=== PATIENT | male | born 1955 | race African-American/Black ===

== ENCOUNTER 2019-01-12 10:05 | Inpatient (IN) | payer MEDICARE, MEDICAID ==
[2019-01-12 10:41] LABS: Bilirubin Negative (Negative); Clarity Turbid (Clear); Glucose, Urine (Dipstick) Negative (Negative); Leukocyte Large (Negative); Nitrite Positive (Negative); Protein, Urine (Dipstick) > or equal to 300 mg/dL (Neg-Trace); Specific Gravity, Urine 1.015 (1.005-1.030); pH, Urine 5.5 (5.0-9.0)
[2019-01-12 10:42] LABS: Bacteria/HPF 2+ HPF (None Seen); Blood, Urine Large (Negative); Squamous Epithelial 0-3 HPF (0-3)
[2019-01-12] MEDS ORDERED: Acetaminophen 500 MG TAB ONE (10:44)
[2019-01-12 10:56] LABS: ALT (SGPT) 56 U/L (8-55); AST (SGOT) 49 U/L (5-34); Alkaline Phosphatase 48 U/L (40-150); Anion Gap 17 mmol/L (10-20); BUN (Urea Nitrogen) 18 mg/dL (8.4-25.7); Bilirubin, Total 2.6 mg/dL (0.2-1.2); Calc. Creatinine Clearance 0 mL/min (70-130); Calcium 9.1 mg/dL (7.8-10.44); Carbon Dioxide 19 mmol/L (23-31); Chloride 105 mmol/L (98-107); Estimated GFR-MDRD 53; Globulin 3.3 g/dL (2.4-3.5); Glucose 113 mg/dL (80-115); Lipase 19 U/L (8-78); Protein, Total 7.3 g/dL (5.8-8.1); Sodium 138 mmol/L (136-145)
[2019-01-12 10:58] LABS: Potassium 2.9 mmol/L (3.5-5.1)
[2019-01-12 11:01] LABS: #Basophils 0.1 thou/uL (0.0-0.2); #Lymphocytes 0.7 thou/uL (1.20-3.40); #Monocytes 1.1 thou/uL (0.11-0.59); #Neutrophils 13.1 thou/uL (1.40-6.50); %Basophils 0.5 % (0.0-1.0); %Lymphocytes 4.5 % (21.0-51.0); %Monocytes 7.1 % (0.0-10.0); %Neutrophils 87.8 % (42.0-75.0); Hemoglobin 14.1 g/dL (14.0-18.0); Mean Corpuscular HGB CONC 34.3 g/dL (32.0-36.0); Mean Corpuscular Volume 93.4 fL (78.0-98.0); Mean Platelet Volume 6.6 fL (7.4-10.4); Platelet Count 105 thou/uL (130-400); White Blood Cell (WBC) Count 14.9 thou/uL (4.8-10.8)
[2019-01-12 11:02] LABS: Platelet Morphology Comment Appears Decreased
[2019-01-12 11:03] LABS: MDiff Complete? YES; Manual Diff?? YES
[2019-01-12] MEDS ORDERED: Piperacillin/Tazobactam 4.5 GM VIAL ONE (11:12)
[2019-01-12] MEDS ORDERED: Sodium Chloride 0.9% 100 ML ONE (11:13)
[2019-01-12] MEDS ORDERED: Ondansetron PF 4 MG/2 ML Vial IVP PRN (11:25)
[2019-01-12] MEDS ORDERED: Acetaminophen 325 MG TAB PO PRN (11:25)
[2019-01-12] MEDS ORDERED: Ondansetron ODT 4 MG TAB SL PRN (11:25)
[2019-01-12] MEDS ORDERED: Nitrofurantoin Monohyd/M-Cryst 100 MG CAP ONE (11:36)
[2019-01-12 13:10] VITALS: BMI 25.7
[2019-01-12] MEDS ORDERED: D5 1/2 NS w/20 mEq KCL 1,000 ML IV SCH (13:30)
[2019-01-12] MEDS ORDERED: Piperacillin/Tazobactam 3.375 GM in Sodium Chloride 0.9% 100 ML IVPB SCH (14:00)
[2019-01-12 18:26] LABS: ALT (SGPT) 49 U/L (8-55); AST (SGOT) 42 U/L (5-34); Albumin 3.4 g/dL (3.4-4.8); Alkaline Phosphatase 44 U/L (40-150); Anion Gap 14 mmol/L (10-20); BUN (Urea Nitrogen) 19 mg/dL (8.4-25.7); Bilirubin, Total 2.5 mg/dL (0.2-1.2); Calc. Creatinine Clearance 67 mL/min (70-130); Calcium 8.3 mg/dL (7.8-10.44); Carbon Dioxide 19 mmol/L (23-31); Chloride 109 mmol/L (98-107); Estimated GFR-MDRD 60; Globulin 2.8 g/dL (2.4-3.5); Glucose 123 mg/dL (80-115); Potassium 3.2 mmol/L (3.5-5.1); Protein, Total 6.2 g/dL (5.8-8.1); Sodium 139 mmol/L (136-145)
[2019-01-12] MEDS: Piperacillin/Tazobactam 3.375 GM in Sodium Chloride 0.9% 100 ML IVPB SCH (18:42)
--- NOTE | 2019-01-12 19:12 | CT ---
CT abdomen noncontrast CT pelvis noncontrast: (Urolithiasis protocol) DATE: 01/12/2019 HISTORY: 63-year-old male with sepsis and pyelonephritis COMPARISON: none TECHNIQUE: IV injection of iodinated contrast media: None Oral contrast media: None FINDINGS: Other than for urolithiasis, the lack of IV and oral contrast limits the evaluation. There is fluid and fat stranding circumferentially throughout the right perirenal space, extending in to the right renal hilum. No significant hydronephrosis bilaterally. No renal, ureteral, or bladder calculus identified. Spleen is enlarged by a large rim calcified, septated 10 x 10 x 10.5 cm multiloc ulated cystic mass. No abdominal aortic aneurysm. No small bowel dilation. Decompressed urinary bladder. Multiple diverticula sigmoid colon. No small bowel dilation. No consolidation or pleural eff usion at lung bases. No pneumoperitoneum. IMPRESSION: 1. Extensive right perirenal edema/fluid without evidence of obstructive uropathy or urolithiasis. Pe rhaps this represents severe right pyelonephritis. The other possibility is a recently passed right ureteral calculus. The former is favored. 2. Splenomegaly due to large, multi septated, multi chambered cystic mass with rim calcifications.
[2019-01-12] MEDS ORDERED: Nitrofurantoin Monohyd/M-Cryst 100 MG CAP PO SCH (21:00)
[2019-01-12] MEDS: Atorvastatin Calcium 10 MG TAB PO SCH (21:26)
--- NOTE | 2019-01-13 00:08 | HP ---
CHIEF COMPLAINT: Abdominal pain and cloudy urine. HISTORY OF PRESENT ILLNESS: Mr. 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 Reports pretty quickly thereafter, he experienced some lower abdominal cramping and diarrhea, approximately 3-4 episodes. He also had a co-worker with a milder version of these symptoms after eating the same peas from the convenience store. He denied any abdominal pain or other symptoms until the following morning at which point, he noticed that his urine turned cloudy and the color of iced tea with associated frequency. He experienced further abdominal pain and "gas" after eating a [employer] burger and some fries yesterday afternoon. He then started with chills and malaise and presented to the emergency room for further evaluation today. In the emergency department, the patient was found to have significant urinalysis and met sepsis criteria with tachycardia, leukocytosis and fever. His lactic acid level was negative, but he was admitted for IV antibiotics, IV fluid resuscitation, and urine and blood cultures. He did not have any imaging performed, but notably had elevated liver function tests as well as a low platelet count. Regarding his elevated LFTs, he gives me a history of being told he previously had hepatitis C and was instructed to stop consuming alcohol while he was being considered for treatment. However, he reports that there was a mix up at his primary care office, as there were two patients with the same name, and he thinks it was the other nancy that had it. He also notes that his primary care doctor, approximately 3 months ago, recommended that he see a security director for issues that were related to possibly this prior hepatitis diagnosis. He denies a history of low platelets, although his platelet count was diminished today. He denies any significant alcohol history previously. PAST MEDICAL HISTORY: 1. Hypertension. 2. Prostate cancer, status post resection 6 years ago, followed regularly by Urology, initially with three-month lab checks and followup, which subsequently was increased to q.6 months and now subsequently, has been increased to yearly with his exam coming up at the end of this month. He did not require chemo or radiation. 3. Hyperlipidemia. PAST SURGICAL HISTORY: Prostate resection. FAMILY HISTORY: Patient denies history of heart disease or diabetes in the family. SOCIAL HISTORY: The patient lives in [place], but apparently comes to work in the [employer] for a month at a time here locally and then returns back home for a week or two. His nephew is here as well. He drinks socially approximately once per month and denies any illicit drug use and does not smoke. MEDICATIONS: The patient takes: 1. Losartan either 25 or 50 mg q.a.m. 2. Diltiazem 100 mg ER q.a.m. 3. Atorvastatin, unknown dosage q. p.m. 4. Oxybutynin, unknown dosing strength b.i.d. ALLERGIES: NO KNOWN DRUG ALLERGIES. REVIEW OF SYSTEMS: GENERAL: He complains of chills, fever unmeasured, malaise, sweats. HEENT: Denies eye pain or changes in his vision, rhinorrhea, ear pain, sore throat, hoarseness to the voice. CARDIOVASCULAR: The patient denies chest pain, palpitations, orthopnea, or PND. RESPIRATORY: Denies shortness of breath, cough, hemoptysis, wheezing. GASTROINTESTINAL: The patient reports lower abdominal pain, reduction in appetite, and diarrhea approximately 2-3 episodes the night before last. No melena or hematochezia. GENITOURINARY: Patient reports cloudy urine. No gross hematuria. Dark urine reported with frequency and hesitancy starting yesterday morning. MUSCULOSKELETAL: The patient complains of myalgias, low back pain. SKIN: Denies rash. NEUROLOGIC: The patient denies weakness, numbness, tingling, or changes in his speech. LYMPHATIC: The patient denies swelling. HEMATOLOGIC: Patient denies any easy bleeding or bruising. OBJECTIVE: VITAL SIGNS: Upon ED presentation, blood pressure 150/99, pulse 119 , O2 saturation 97% on room air, respirations 16, temperature 99.4, pain 2/10. On my exam, temperature 98.8, heart rate 103, respirations 18, 97% on room air, blood pressure 139/89. GENERAL: Well-developed, thin male, well nourished, diaphoretic. Alert and oriented to person, place, and time. Responds appropriately to questioning, ill appearing. HEENT: Normocephalic, atraumatic. Pupils equally round and reactive to light and accommodation, extraocular muscles intact. Nares are patent without discharge. Tongue protrudes in the midline. NECK: Supple without lymphadenopathy, thyromegaly, JVD, or bruit. HEART: Tachycardic with regular rhythm. Normal S1 and S2. No murmurs, clicks, rubs, or gallops. LUNGS: Clear to auscultation with good air entry bilaterally. No crackles or wheezes. ABDOMEN: Positive bowel sounds in all four quadrants. Soft, nondistended, tenderness to palpation bilateral lower quadrants without masses, guarding, or rebound tenderness. EXTREMITIES: No cyanosis, clubbing, or edema. NEUROLOGIC: Cranial nerves 2 through 12 are grossly intact without focal deficits. LABORATORY STUDIES: White count 14.9 with 89% neutrophils and 4% lymphocytes, hemoglobin 14.1, hematocrit 41, platelets 105 with a morphology comment that they appear decreased. Sodium 138, potassium 3.9, BUN 18, creatinine 1.62, glucose 113, lactic acid 1.0, calcium 9.1, T bilirubin 2.6, AST 49, ALT 56, alkaline phosphatase 48, albumin 4, and lipase 19. The urine is turbid with greater than or equal to 300 protein, large blood, positive nitrite, large LE, 11-20 rbc's, greater than 50 to [id number] wbc's and 2+ urine bacteria, 0-3 squamous epithelial cells. Micro urine and blood cultures x2 are pending. ASSESSMENT AND PLAN: 1. Sepsis secondary to pyelonephritis. The patient meets criteria for sepsis and has been treated in the emergency room with Zosyn and oral macrobid. ED held fluoroquinalone in light of the significant hypokalemia and risk of QT prolongation. Will discontinue macrobid due to poor bladder penetrance in the context of significant infection and the patient's renal insufficiency. We will continue the Zosyn at this time. Follow up urine and blood cultures. Due to the patient's gastrointestinal symptoms, we will go ahead and obtain a CT scan of the abdomen and pelvis without contrast. He would be considered high risk due to his previous history of prostate cancer. 2. History of prostate cancer. We will check a PSA. The patient's oxybutynin will be held in the context of infection while here. 3. Transaminitis with thrombocytopenia. The patient gives a possible history of hepatitis C. We will get an acute hepatitis profile and imaging as above. 4. Possible food poisoning. If the patient has diarrhea, we will obtain stool studies. 5. Hypertension. The patient will be continued on his diltiazem. Hold losartan as I suspect his renal insufficiency is at least partially acute. 6. Hypokalemia. The patient was given potassium in the ER and his current IV fluids contain potassium. He is going to have repeat labs this afternoon and in the morning. The etiology of this is unclear as the patient is not on any potassium-lowering medication at this time. 7. Hyperlipidemia. The patient will be continued on his atorvastatin. 8. Renal insufficiency. Unknown baseline. The patient was given IV fluids in the emergency room and will be continued on fluids overnight. We will repeat labs in the a.m. 9. Prophylaxis. Since the patient's platelets are low, I am going to give him pantoprazole instead of pepcid for stress ulcer prophylaxis. [facility] STATUS: Patient is a FULL CODE. Job ID: [id number]
[2019-01-13] MEDS: Piperacillin/Tazobactam 3.375 GM in Sodium Chloride 0.9% 100 ML IVPB SCH ×4 (00:32→17:17)
[2019-01-13 05:59] LABS: Anion Gap 11 mmol/L (10-20); BUN (Urea Nitrogen) 22 mg/dL (8.4-25.7); Calc. Creatinine Clearance 72 mL/min (70-130); Calcium 8.2 mg/dL (7.8-10.44); Carbon Dioxide 21 mmol/L (23-31); Chloride 110 mmol/L (98-107); Estimated GFR-MDRD 65; Glucose 138 mg/dL (80-115); Potassium 3.5 mmol/L (3.5-5.1); Sodium 138 mmol/L (136-145)
[2019-01-13 06:00] LABS: Hemoglobin 12.7 g/dL (14.0-18.0); Mean Corpuscular HGB CONC 33.5 g/dL (32.0-36.0); Mean Corpuscular Hemoglobin 31.7 pg (27.0-31.0); Mean Corpuscular Volume 94.6 fL (78.0-98.0); Mean Platelet Volume 6.4 fL (7.4-10.4); Platelet Count 83 thou/uL (130-400); RBC Distribution Width 11.3 % (11.5-14.5); Red Blood Cell (RBC) Count 4.01 mill/uL (4.70-6.10); White Blood Cell (WBC) Count 12.2 thou/uL (4.8-10.8)
[2019-01-13 06:12] LABS: Band 10 % (5-11); Lymphocytes 5 % (21-51); MDiff Complete? YES; Monocytes 3 % (0-10); Neutrophil 82 % (42-75); Platelet Morphology Comment Appears Decreased; RBC Morphology Normal
[2019-01-13] MEDS: Floranex Packet PO SCH (08:19)
[2019-01-13] MEDS: Acetaminophen 325 MG TAB PO PRN ×4 (08:19→21:28)
[2019-01-13] MEDS: Sodium Chloride 0.9% 1,000 ML IV SCH (13:39)
[2019-01-13 15:22] LABS: HBCM Index 0.63 S/CO (0-0.79); HBSAg Index 0.31 S/CO (0-0.99); Hep A IgM AB Non-Reactive (NonReactive); Hep B Surf Ag Non-Reactive S/CO (NonReactive); Hepatitis B Core IgM Abs Non-Reactive (NonReactive); PSA-Symptomatic (DIAGNOSTIC) Less than 0.02 ng/mL (0-4.0)
[2019-01-13 15:57] LABS: Hep C IgG Ab Reflex HepC Qnt (NonReactive); Hep C Index 4.19 S/CO (0-0.79)
[2019-01-13] MEDS: Atorvastatin Calcium 10 MG TAB PO SCH (21:28)
[2019-01-14] MEDS: Piperacillin/Tazobactam 3.375 GM in Sodium Chloride 0.9% 100 ML IVPB SCH ×5 (00:24→23:46)
[2019-01-14] MEDS: Sodium Chloride 0.9% 1,000 ML IV SCH ×4 (02:01→17:22)
[2019-01-14 05:27] LABS: ALT (SGPT) 31 U/L (8-55); AST (SGOT) 25 U/L (5-34); Alkaline Phosphatase 35 U/L (40-150); Anion Gap 11 mmol/L (10-20); BUN (Urea Nitrogen) 21 mg/dL (8.4-25.7); Bilirubin, Total 1.9 mg/dL (0.2-1.2); Calc. Creatinine Clearance 79 mL/min (70-130); Calcium 7.8 mg/dL (7.8-10.44); Carbon Dioxide 20 mmol/L (23-31); Chloride 110 mmol/L (98-107); Estimated GFR-MDRD 73; Globulin 2.6 g/dL (2.4-3.5); Glucose 103 mg/dL (80-115); Potassium 3.4 mmol/L (3.5-5.1); Protein, Total 5.6 g/dL (5.8-8.1); Sodium 138 mmol/L (136-145)
[2019-01-14] MEDS: Acetaminophen 325 MG TAB PO PRN ×3 (05:37→20:47)
[2019-01-14 05:41] LABS: Band 4 % (5-11); Dohle Bodies SLIGHT; Eosinophils 1 % (0-10); Hemoglobin 12.1 g/dL (14.0-18.0); Lymphocytes 5 % (21-51); MDiff Complete? YES; Mean Corpuscular HGB CONC 32.8 g/dL (32.0-36.0); Mean Corpuscular Hemoglobin 31.1 pg (27.0-31.0); Mean Corpuscular Volume 94.9 fL (78.0-98.0); Mean Platelet Volume 8.2 fL (7.4-10.4); Monocytes 5 % (0-10); Neutrophil 84 % (42-75); Platelet Count 91 thou/uL (130-400); Platelet Morphology Comment Appears Adequate; RBC Distribution Width 11.9 % (11.5-14.5); RBC Morphology Normal; Red Blood Cell (RBC) Count 3.89 mill/uL (4.70-6.10); Toxic Granulation SLIGHT; White Blood Cell (WBC) Count 7.8 thou/uL (4.8-10.8)
[2019-01-14] MEDS: Floranex Packet PO SCH ×2 (09:07→09:08)
[2019-01-14] MEDS: Atorvastatin Calcium 10 MG TAB PO SCH (20:47)
[2019-01-15 05:44] LABS: Band 1 % (5-11); Eosinophils 2 % (0-10); Hemoglobin 11.4 g/dL (14.0-18.0); Lymphocytes 15 % (21-51); MDiff Complete? YES; Mean Corpuscular HGB CONC 32.6 g/dL (32.0-36.0); Mean Corpuscular Hemoglobin 31.3 pg (27.0-31.0); Mean Corpuscular Volume 96.1 fL (78.0-98.0); Mean Platelet Volume 6.5 fL (7.4-10.4); Metamyelocyte 1 % (0-0); Monocytes 3 % (0-10); Neutrophil 78 % (42-75); Platelet Count 94 thou/uL (130-400); Platelet Morphology Comment PLTS APPEAR DECREASED ON SLIDE; RBC Distribution Width 12.1 % (11.5-14.5); Red Blood Cell (RBC) Count 3.65 mill/uL (4.70-6.10); Toxic Granulation SLIGHT; White Blood Cell (WBC) Count 5.5 thou/uL (4.8-10.8)
[2019-01-15 05:58] LABS: Anion Gap 14 mmol/L (10-20); BUN (Urea Nitrogen) 17 mg/dL (8.4-25.7); Calc. Creatinine Clearance 83 mL/min (70-130); Calcium 7.8 mg/dL (7.8-10.44); Carbon Dioxide 19 mmol/L (23-31); Chloride 112 mmol/L (98-107); Estimated GFR-MDRD 77; Glucose 118 mg/dL (80-115); Potassium 3.5 mmol/L (3.5-5.1); Sodium 141 mmol/L (136-145)
[2019-01-15] MEDS: Piperacillin/Tazobactam 3.375 GM in Sodium Chloride 0.9% 100 ML IVPB SCH ×3 (06:09→16:26)
[2019-01-15] MEDS: Losartan Potassium 50 MG TAB PO SCH (09:15)
[2019-01-15] MEDS: Floranex Packet PO SCH (09:16)
[2019-01-15] MEDS: Sodium Chloride 0.9% 1,000 ML IV SCH ×2 (10:25→15:57)
[2019-01-15] MEDS: Acetaminophen 325 MG TAB PO PRN (16:25)
[2019-01-15] MEDS: Atorvastatin Calcium 10 MG TAB PO SCH (21:10)
[2019-01-16] MEDS: Piperacillin/Tazobactam 3.375 GM in Sodium Chloride 0.9% 100 ML IVPB SCH ×5 (01:02→23:52)
[2019-01-16] MEDS: Acetaminophen 325 MG TAB PO PRN (01:14)
[2019-01-16] MEDS: Sodium Chloride 0.9% 1,000 ML IV SCH (02:08)
[2019-01-16 05:41] LABS: Anion Gap 11 mmol/L (10-20); BUN (Urea Nitrogen) 11 mg/dL (8.4-25.7); Calc. Creatinine Clearance 94 mL/min (70-130); Calcium 8.2 mg/dL (7.8-10.44); Carbon Dioxide 18 mmol/L (23-31); Chloride 112 mmol/L (98-107); Estimated GFR-MDRD 89; Glucose 105 mg/dL (80-115); Potassium 3.4 mmol/L (3.5-5.1); Sodium 138 mmol/L (136-145)
[2019-01-16 05:56] LABS: Band 2 % (5-11); Dohle Bodies SLIGHT; Eosinophils 1 % (0-10); Hemoglobin 10.9 g/dL (14.0-18.0); Lymphocytes 24 % (21-51); MDiff Complete? YES; Mean Corpuscular HGB CONC 32.8 g/dL (32.0-36.0); Mean Corpuscular Hemoglobin 30.9 pg (27.0-31.0); Mean Corpuscular Volume 94.4 fL (78.0-98.0); Mean Platelet Volume 7.6 fL (7.4-10.4); Monocytes 10 % (0-10); Neutrophil 63 % (42-75); Platelet Count 87 thou/uL (130-400); Platelet Morphology Comment Appears Decreased; RBC Distribution Width 11.9 % (11.5-14.5); RBC Morphology Normal; Red Blood Cell (RBC) Count 3.53 mill/uL (4.70-6.10); Toxic Granulation SLIGHT; White Blood Cell (WBC) Count 4.7 thou/uL (4.8-10.8)
[2019-01-16] MEDS ORDERED: Potassium Chloride 20 MEQ TAB PO SCH (08:00)
[2019-01-16] MEDS: Floranex Packet PO SCH (08:41)
[2019-01-16] MEDS: Losartan Potassium 50 MG TAB PO SCH (08:42)
[2019-01-16 12:12] LABS: HCV I.Units 15200000 IU/mL (.); HCV I.Units log10 7.182 (.); Hep C PCR-Quant See Final Results IU/mL (.)
[2019-01-16] MEDS: Atorvastatin Calcium 10 MG TAB PO SCH (20:37)
[2019-01-17 05:21] LABS: ALT (SGPT) 56 U/L (8-55); AST (SGOT) 77 U/L (5-34); Albumin 3.2 g/dL (3.4-4.8); Alkaline Phosphatase 49 U/L (40-150); Anion Gap 13 mmol/L (10-20); BUN (Urea Nitrogen) 11 mg/dL (8.4-25.7); Bilirubin, Total 1.4 mg/dL (0.2-1.2); Calc. Creatinine Clearance 93 mL/min (70-130); Calcium 8.7 mg/dL (7.8-10.44); Carbon Dioxide 19 mmol/L (23-31); Chloride 109 mmol/L (98-107); Estimated GFR-MDRD 88; Globulin 2.9 g/dL (2.4-3.5); Glucose 105 mg/dL (80-115); Magnesium 1.2 mg/dL (1.6-2.6); Potassium 3.4 mmol/L (3.5-5.1); Protein, Total 6.1 g/dL (5.8-8.1); Sodium 138 mmol/L (136-145)
[2019-01-17] MEDS: Piperacillin/Tazobactam 3.375 GM in Sodium Chloride 0.9% 100 ML IVPB SCH ×3 (05:24→17:35)
[2019-01-17 05:55] LABS: Band 3 % (5-11); Dohle Bodies SLIGHT; Hemoglobin 11.3 g/dL (14.0-18.0); Lymphocytes 17 % (21-51); MDiff Complete? YES; Mean Corpuscular HGB CONC 33.2 g/dL (32.0-36.0); Mean Corpuscular Hemoglobin 30.9 pg (27.0-31.0); Mean Corpuscular Volume 93.1 fL (78.0-98.0); Mean Platelet Volume 6.8 fL (7.4-10.4); Monocytes 10 % (0-10); Neutrophil 70 % (42-75); Platelet Count 94 thou/uL (130-400); Platelet Morphology Comment Appears Decreased; RBC Morphology Normal; Red Blood Cell (RBC) Count 3.67 mill/uL (4.70-6.10); Toxic Granulation SLIGHT; White Blood Cell (WBC) Count 5.1 thou/uL (4.8-10.8)
[2019-01-17] MEDS: Floranex Packet PO SCH (09:40)
[2019-01-17] MEDS: Losartan Potassium 50 MG TAB PO SCH (09:40)
[2019-01-17] MEDS: Potassium Chloride 20 MEQ TAB PO SCH ×2 (11:30→20:29)
[2019-01-17] MEDS ORDERED: Losartan Potassium 50 MG TAB PO SCH (17:34)
[2019-01-17 19:10] LABS: Hepatitis C RNA-PCR Positive (Negative)
[2019-01-17 19:31] LABS: CRP (Inflammatory) 3.69 mg/dL (= or < 0.5)
[2019-01-17] MEDS: Atorvastatin Calcium 10 MG TAB PO SCH (20:29)
[2019-01-18 05:32] LABS: Anion Gap 13 mmol/L (10-20); BUN (Urea Nitrogen) 9 mg/dL (8.4-25.7); Calc. Creatinine Clearance 108 mL/min (70-130); Carbon Dioxide 23 mmol/L (23-31); Chloride 109 mmol/L (98-107); Estimated GFR-MDRD Greater than 90; Glucose 114 mg/dL (80-115); Potassium 3.9 mmol/L (3.5-5.1); Sodium 141 mmol/L (136-145)
[2019-01-18 06:05] LABS: #Eosinphils 0.2 thou/uL (0.0-0.7); #Lymphocytes 0.9 thou/uL (1.20-3.40); #Monocytes 0.6 thou/uL (0.11-0.59); #Neutrophils 3.5 thou/uL (1.40-6.50); %Basophils 0.6 % (0.0-1.0); %Eosinophils 4.4 % (0.0-10.0); %Lymphocytes 17.6 % (21.0-51.0); %Neutrophils 66.3 % (42.0-75.0); Hemoglobin 11.6 g/dL (14.0-18.0); Mean Corpuscular HGB CONC 33.1 g/dL (32.0-36.0); Mean Corpuscular Hemoglobin 31.3 pg (27.0-31.0); Mean Corpuscular Volume 94.6 fL (78.0-98.0); Mean Platelet Volume 6.6 fL (7.4-10.4); Platelet Count 113 thou/uL (130-400); RBC Distribution Width 12.2 % (11.5-14.5); Red Blood Cell (RBC) Count 3.71 mill/uL (4.70-6.10); White Blood Cell (WBC) Count 5.3 thou/uL (4.8-10.8)
[2019-01-18] MEDS ORDERED: Magnesium Oxide 400 MG TAB PO SCH (09:00)
[2019-01-18] MEDS: Floranex Packet PO SCH (09:26)
[2019-01-18] MEDS: Potassium Chloride 20 MEQ TAB PO SCH ×2 (09:26→21:25)
[2019-01-18 19:51] VITALS: BP 140/80; TEMP 98
[2019-01-18] MEDS: Atorvastatin Calcium 10 MG TAB PO SCH (21:25)
== END 2019-01-18 22:21 | disposition swing bed (61) | DRG 872 ==
LOC: BURERS 10:05 → BURMED 11:25
PROVIDERS: ADMIT Family Medicine; ATTEND Family Medicine
DX: A41.9 Sepsis, unspecified organism (principal); N12 Tubulo-interstitial nephritis, not specified as acute or chronic; E87.6 Hypokalemia; D69.6 Thrombocytopenia, unspecified; R74.0 Nonspecific elevation of levels of transaminase and lactic acid dehydrogenase [LDH]; I10 Essential (primary) hypertension; E78.5 Hyperlipidemia, unspecified; N28.9 Disorder of kidney and ureter, unspecified; Z85.46 Personal history of malignant neoplasm of prostate; Z90.79 Acquired absence of other genital organ(s)
CPT/HCPCS: 36415; 74176; 80048; 80053; 80074; 81003; 81015; 83605; 83690; 83735; 84153; 85025; 85652; 86140; 87040; 87077; 87086; 87149; 87186; 87521; 87522; 96365; J2543; J3490